=== PATIENT | male | born 1970 | race Hispanic/Latino ===

== ENCOUNTER 2017-07-02 04:38 | Emergency (ER) | payer BC ==
[2017-07-02 05:03] LABS: BASOPHILS % (AUTO) 0.4 % (0.0-5.0); EOSINOPHILS % (AUTO) 0.3 % (0.0-8.0); HEMATOCRIT 49.5 % (42-54); LYMPHOCYTES % (AUTO) 15.5 % (21.0-51.0); MEAN CORPUSCULAR HEMOGLOBIN 30.8 pg (27.0-33.0); MEAN CORPUSCULAR HGB CONC 33.9 g/dL (32.0-36.0); MEAN CORPUSCULAR VOLUME 90.7 fL (79-99); MONOCYTES % (AUTO) 3.3 % (3.0-13.0); NEUTROPHILS % (AUTO) 80.5 % (40.0-77.0); PLATELET COUNT (AUTO) 213 K/uL (130-400); RED BLOOD CELL COUNT(AUTO) 5.46 MIL/uL (4.50-6.20); RED CELL DISTRIBUTION WIDTH 12.9 % (11.0-15.5); WHITE BLOOD COUNT (AUTO) 12.1 K/uL (4.8-10.8)
[2017-07-02] MEDS ORDERED: SODIUM CHLORIDE 0.9% 1000ML 1,000 ML IV ONE (05:13)
[2017-07-02] MEDS ORDERED: KETOROLAC TROMETHAMINE 30MG/ML ONE (05:13)
[2017-07-02] MEDS ORDERED: DICYCLOMINE HCL 20 MG TAB ONE (05:13)
[2017-07-02] MEDS ORDERED: ONDANSETRON HCL 4 MG/2 ML VIAL ONE (05:13)
[2017-07-02 05:21] LABS: CREATININE 1.2 mg/dL (0.5-1.5); POTASSIUM 4.5 mmol/L (3.5-5.1)
[2017-07-02 05:25] LABS: ALBUMIN 4.2 g/dL (3.5-5.0); TOTAL PROTEIN, SERUM 8.2 g/dL (6.0-8.3)
[2017-07-02 05:31] LABS: APPEARANCE,URINE Clear (CLEAR); BILIRUBIN,URINE Negative (NEGATIVE); COLOR,URINE Yellow (YELLOW); GLUCOSE, URINE (UA) Negative (NEGATIVE); KETONES,URINE Negative (NEGATIVE); LEUKOCYTE ESTERASE ,URINE Negative (NEGATIVE); NITRATE,URINE Negative (NEGATIVE); OCCULT BLOOD,URINE Negative (NEGATIVE); PH,URINE 5.5 (5.0-8.0); PROTEIN,URINE Trace (NEGATIVE)
[2017-07-02 05:39] LABS: AMPHET/METH SCREEN,URINE NEGATIVE (NEGATIVE); BARBITURATE SCREEN, URINE NEGATIVE (NEGATIVE); BENZODIAZEPINES SCREEN,URINE NEGATIVE (NEGATIVE); CANNABINOID SCREEN,URINE NEGATIVE (NEGATIVE); COCAINE SCREEN,URINE NEGATIVE (NEGATIVE); OPIATE SCREEN,URINE NEGATIVE (NEGATIVE); PHENCYCLIDINE SCREEN,URINE NEGATIVE (NEGATIVE)
[2017-07-02] MEDS ORDERED: ACETAMINOPHEN-CODEINE 300/30MG TAB ONE (06:23)
== END 2017-07-02 06:43 | disposition home or self-care (01) ==
LOC: EDH 04:38
DX: K80.70 Calculus of gallbladder and bile duct without cholecystitis without obstruction (principal)
CPT/HCPCS: 36415; 76705; 80053; 80305; 81003; 82150; 83690; 85025; 96361; 96374; 96375; 99285; J1885; J2405; J7030

== ENCOUNTER 2017-08-20 06:36 | Observation (INO) | payer BC ==
[~2017-08-20] VITALS: Ht 167.6 cm; Wt 127.0 kg
[2017-08-20 07:02] LABS: BASOPHILS % (AUTO) 0.4 % (0.0-5.0); EOSINOPHILS % (AUTO) 1.7 % (0.0-8.0); MEAN CORPUSCULAR HEMOGLOBIN 31.4 pg (27.0-33.0); MEAN CORPUSCULAR HGB CONC 34.7 g/dL (32.0-36.0); MEAN CORPUSCULAR VOLUME 90.4 fL (79-99); MONOCYTES % (AUTO) 9.2 % (3.0-13.0); NEUTROPHILS % (AUTO) 52.7 % (40.0-77.0); NUCLEATED RED BLOOD CELLS 0.1 % (0.0-0.19); PLATELET COUNT (AUTO) 197 K/uL (130-400); RED BLOOD CELL COUNT(AUTO) 5.64 MIL/uL (4.50-6.20); RED CELL DISTRIBUTION WIDTH 12.9 % (11.0-15.5); WHITE BLOOD COUNT (AUTO) 9.2 K/uL (4.8-10.8)
[2017-08-20 07:10] LABS: CREATININE 1.1 mg/dL (0.5-1.5); POTASSIUM 5.2 mmol/L (3.5-5.1)
[2017-08-20] MEDS ORDERED: SODIUM CHLORIDE 0.9% 1000ML 1,000 ML IV ONE ×2 (07:11→10:43)
[2017-08-20] MEDS ORDERED: ONDANSETRON HCL 4 MG/2 ML VIAL ONE (07:11)
[2017-08-20 07:14] LABS: ALBUMIN 3.9 g/dL (3.5-5.0); BILIRUBIN,DIRECT 0.1 mg/dL (0.0-0.3)
[2017-08-20] MEDS ORDERED: MORPHINE SULFATE 4 MG/1ML SYG ONE (07:33)
[2017-08-20 07:56] LABS: BILIRUBIN,TOTAL 0.9 mg/dL (0.2-1.0); TOTAL PROTEIN, SERUM 7.8 g/dL (6.0-8.3)
[2017-08-20 08:18] LABS: APPEARANCE,URINE Clear (CLEAR); BILIRUBIN,URINE Negative (NEGATIVE); COLOR,URINE Yellow (YELLOW); GLUCOSE, URINE (UA) Negative (NEGATIVE); KETONES,URINE Negative (NEGATIVE); LEUKOCYTE ESTERASE ,URINE Negative (NEGATIVE); NITRATE,URINE Negative (NEGATIVE); OCCULT BLOOD,URINE Negative (NEGATIVE); PH,URINE 7.5 (5.0-8.0); PROTEIN,URINE Negative (NEGATIVE)
[2017-08-20 08:26] LABS: AMPHET/METH SCREEN,URINE NEGATIVE (NEGATIVE); BARBITURATE SCREEN, URINE NEGATIVE (NEGATIVE); BENZODIAZEPINES SCREEN,URINE NEGATIVE (NEGATIVE); CANNABINOID SCREEN,URINE NEGATIVE (NEGATIVE); COCAINE SCREEN,URINE NEGATIVE (NEGATIVE); OPIATE SCREEN,URINE POSITIVE (NEGATIVE); PHENCYCLIDINE SCREEN,URINE NEGATIVE (NEGATIVE)
[2017-08-20] MEDS: SODIUM CHLORIDE 0.9% 1000ML 1,000 ML IV SCH ×2 (09:52→19:52)
[2017-08-20] MEDS ORDERED: ONDANSETRON HCL 4 MG/2 ML VIAL IV PRN (10:00)
[2017-08-20] MEDS ORDERED: GUAIFENESIN-DM 200/20 MG 10 ML PO PRN (10:00)
[2017-08-20] MEDS ORDERED: MEPERIDINE-PF 25 MG/ML SYG IV PRN (10:00)
[2017-08-20] MEDS ORDERED: ACETAMINOPHEN 325 MG TAB PO PRN ×2 (10:00)
[2017-08-20] MEDS ORDERED: MAG HYDROX/AL HYDROX/SIMETH ES 30 ML SUSP UDCUP PO PRN (10:00)
[2017-08-20] MEDS ORDERED: PROMETHAZINE HCL 25 MG/ML 1ML AMPULE IM ONE (10:00)
[2017-08-20 10:13] LABS: HEMOGLOBIN A1C 5.6 % (4.0-6.0)
[2017-08-20] MEDS ORDERED: MEROPENEM 1 GM VIAL ONE (12:21)
[2017-08-20 12:52] VITALS: BP 119/64
[2017-08-20] MEDS ORDERED: ZOSYN 3.375GM+NS 50ML 50 ML IV SCH (13:00)
[2017-08-20] MEDS ORDERED: TYL3 PO (13:01)
[2017-08-20] MEDS ORDERED: DICY20TA11 PO (13:01)
[2017-08-20] MEDS: MEROPENEM 1 GM VIAL IVP SCH ×2 (14:08→21:33)
[2017-08-20 16:00] VITALS: BP 118/72
[2017-08-20 20:00] VITALS: BP 107/72
[2017-08-20] MEDS: FAMOTIDINE/PF 20 MG/2 ML VIAL IV SCH (21:33)
[2017-08-21] VITALS (23 sets, daily range): BP systolic 104–139; BP diastolic 60–89
[2017-08-21] MEDS: SODIUM CHLORIDE 0.9% 1000ML 1,000 ML IV SCH ×5 (00:35→21:55)
[2017-08-21] MEDS: MEROPENEM 1 GM VIAL IVP SCH (04:23)
[2017-08-21] MEDS: FLU VACC QS2017-18 36MOS UP/PF 60 MCG/0.5 ML ML IM SCH ×2 (04:24→21:50)
[2017-08-21 06:12] LABS: ALBUMIN 3.3 g/dL (3.5-5.0); BILIRUBIN,TOTAL 1.2 mg/dL (0.2-1.0); CREATININE 1.2 mg/dL (0.5-1.5); POTASSIUM 4.3 mmol/L (3.5-5.1); TOTAL PROTEIN, SERUM 6.4 g/dL (6.0-8.3)
[2017-08-21] MEDS: FAMOTIDINE/PF 20 MG/2 ML VIAL IV SCH ×3 (08:46→21:55)
[2017-08-21] MEDS ORDERED: LACTATED RINGERS 1000ML 1,000 ML IV ONE (10:55)
[2017-08-21] MEDS ORDERED: GLYCOPYRROLATE 0.2 MG/ML 5 ML VIAL ONE (11:20)
[2017-08-21] MEDS ORDERED: ONDANSETRON HCL 4 MG/2 ML VIAL ONE (11:20)
[2017-08-21] MEDS ORDERED: LIDOCAINE PF 2% 5ML ABBOJECT ONE (11:20)
[2017-08-21] MEDS ORDERED: NEOSTIGMINE 5MG/5ML SYR IV ONE (11:20)
[2017-08-21] MEDS ORDERED: SUCCINYLCHOLINE 200MG/10ML SYR ONE ×2 (11:20→11:24)
[2017-08-21] MEDS ORDERED: MIDAZOLAM HCL 1 MG/ML 2ML VIAL ONE (11:21)
[2017-08-21] MEDS ORDERED: FENTANYL CITRATE PF 50 MCG/1 ML 5ML AMP IV ONE ×2 (11:21→12:11)
[2017-08-21] MEDS ORDERED: PROPOFOL 10 MG/ML 20ML VIAL IV ONE ×2 (11:21→12:07)
[2017-08-21] MEDS ORDERED: HEPARIN SODIUM 1000UNIT/ML 10ML VIAL ONE (11:28)
[2017-08-21] MEDS ORDERED: KETOROLAC TROMETHAMINE 30MG/ML ONE ×2 (11:52→14:46)
[2017-08-21] MEDS ORDERED: ACETAMINOPHEN-CODEINE 300/30MG TAB PO PRN (13:00)
[2017-08-21] MEDS: ACETAMINOPHEN-CODEINE 300/30MG TAB PO PRN ×2 (14:39→21:55)
[2017-08-21] MEDS: MEPERIDINE HCL/PF 25 MG/0.5 ML AMPUL IV PRN (15:29)
[2017-08-22 00:47] VITALS: BP 136/83
[2017-08-22 04:16] VITALS: BP 118/65
[2017-08-22] MEDS: MEPERIDINE HCL/PF 25 MG/0.5 ML AMPUL IV PRN (04:52)
[2017-08-22 07:55] VITALS: BP 100/54
[2017-08-22] MEDS: SODIUM CHLORIDE 0.9% 1000ML 1,000 ML IV SCH ×2 (08:48→11:52)
[2017-08-22] MEDS: ACETAMINOPHEN-CODEINE 300/30MG TAB PO PRN ×2 (08:52→14:20)
[2017-08-22 12:01] VITALS: BP 128/73
== END 2017-08-22 17:02 | disposition home or self-care (01) ==
LOC: EDH 06:36 → EDHIP 09:52 → 4BH 11:31
PROVIDERS: ADMIT Family Medicine; ATTEND Family Medicine
DX: K80.10 Calculus of gallbladder with chronic cholecystitis without obstruction (principal); K76.0 Fatty (change of) liver, not elsewhere classified; E66.01 Morbid (severe) obesity due to excess calories; Z23 Encounter for immunization
CPT/HCPCS: 36415 ×2; 47562; 76705; 78227; 80048; 80053; 80076; 80305; 81003; 82550; 83036; 83690; 85025; 88304; 96374; 96375 ×2; 96376 ×3; 99285; A4218 ×4; A4450; A4510; A4649; A9537; C1769 ×4; G0008; G0378 ×55; J0330 ×2; J1644; J1885 ×2; J2001; J2175 ×2; J2185 ×4; J2250; J2270; J2405 ×3; J2550; J2704 ×2; J2710; J3010 ×2; J3490 ×5; J7030 ×5; J7120; Q2038

== ENCOUNTER → 2019-07-22 | Outpatient (CLI) | payer BC ==
[~2019-07-22] MED LIST: DICY20TA11 PO; TYL3 PO
== END | disposition home or self-care (01) ==
LOC: OIH 09:35
PROVIDERS: ATTEND Internal Medicine
DX: R06.00 Dyspnea, unspecified (principal)
CPT/HCPCS: 71046

== ENCOUNTER 2022-06-05 20:07 | Emergency (ER) | payer BC, MEDICAID ==
[~2022-06-05] VITALS: Ht 167.6 cm; Wt 141.5 kg
[~2022-06-05 20:07] MED LIST changes: -DICY20TA11 PO; +DICY20TA3 PO
[2022-06-05 20:54] VITALS: BP 158/85
[2022-06-05 20:55] LABS: BASOPHILS % (AUTO) 0.4 % (0.0-5.0); EOSINOPHILS % (AUTO) 3.3 % (0.0-8.0); LYMPHOCYTES % (AUTO) 33.3 % (21.0-51.0); MEAN CORPUSCULAR HEMOGLOBIN 31.2 pg (27.0-33.0); MEAN CORPUSCULAR HGB CONC 33.9 g/dL (32.0-36.0); MEAN CORPUSCULAR VOLUME 92.2 fL (79-99); MONOCYTES % (AUTO) 9.2 % (3.0-13.0); NEUTROPHILS % (AUTO) 53.6 % (40.0-77.0); PLATELET COUNT (AUTO) 178 K/uL (130-400); RED BLOOD CELL COUNT(AUTO) 4.77 MIL/uL (4.50-6.20); RED CELL DISTRIBUTION WIDTH 12.2 % (11.0-15.5); WHITE BLOOD COUNT (AUTO) 8.5 K/uL (4.8-10.8)
[2022-06-05 21:05] LABS: CREATININE 1.2 mg/dL (0.5-1.5); POTASSIUM 3.5 mmol/L (3.5-5.1)
[2022-06-05 21:15] LABS: ALBUMIN 3.5 g/dL (3.5-5.0)
== END 2022-06-05 21:51 | disposition home or self-care (01) ==
LOC: EDH 20:07
DX: I10 Essential (primary) hypertension (principal); Z90.49 Acquired absence of other specified parts of digestive tract
CPT/HCPCS: 36415; 71045; 80053; 84484; 85025; 93005

== ENCOUNTER → 2022-10-23 | Outpatient (CLI) | payer BC, MEDICAID | END | disposition home or self-care (01) | LOC: RAH 13:27 | PROVIDERS: ATTEND Internal Medicine | DX: N43.3 Hydrocele, unspecified (principal); N50.819 Testicular pain, unspecified | CPT/HCPCS: 76870 ==

== ENCOUNTER 2023-01-15 15:11 | Observation (INO) | payer BC, MEDICAID ==
[~2023-01-15] VITALS: Ht 167.6 cm; Wt 138.8 kg
[2023-01-15 17:05] LABS: HEMATOCRIT 48.3 % (42-54); MEAN CORPUSCULAR HEMOGLOBIN 31.7 pg (27.0-33.0); MEAN CORPUSCULAR VOLUME 93.2 fL (79-99); RED BLOOD CELL COUNT(AUTO) 5.18 MIL/uL (4.50-6.20); RED CELL DISTRIBUTION WIDTH 12.2 % (11.0-15.5); WHITE BLOOD COUNT (AUTO) 8.6 K/uL (4.8-10.8)
[2023-01-15 17:53] LABS: ALANINE AMINOTRANSFERASE 67 U/L (12-78); ALBUMIN 3.7 g/dL (3.5-5.0); ASPARTATE AMINOTRANSFERASE 28 U/L (10-37); CARBON DIOXIDE 33 mmol/L (21-32); CHLORIDE 105 mmol/L (101-111); CREATINE KINASE, TOTAL 164 U/L (21-232); CREATININE 0.9 mg/dL (0.5-1.5); GLOMERULAR FILTR. RATE CALC 104 mL/min (>90); GLUCOSE,RANDOM 95 mg/dL (70-105); MYOGLOBIN 59 ng/mL (10-92); POTASSIUM 4.1 mmol/L (3.5-5.1); SODIUM SERUM 143 mmol/L (136-145); THYROID STIMULATING HORMONE 1.72 uIU/mL (0.36-3.74); TOTAL PROTEIN, SERUM 7.3 g/dL (6.0-8.3); UREA NITROGEN, BLOOD 11 mg/dL (7-18)
[2023-01-15 18:05] LABS: CRP QUANTITATIVE < 2.00 mg/L (0.00-9.0)
[2023-01-15] MEDS ORDERED: ACETAMINOPHEN 325 MG TAB PO PRN (23:30)
[2023-01-15] MEDS ORDERED: HYDROMORPHONE 0.5 MG SYG (0.5MG/0.5ML) IVP PRN (23:30)
[2023-01-15] MEDS ORDERED: ONDANSETRON 4MG INJ IVP PRN (23:30)
[2023-01-15] MEDS: 1/2 NS 1000ML 1,000 ML IV SCH (23:31)
[2023-01-16] VITALS (8 sets, daily range): BP systolic 134–160; BP diastolic 71–91; PULSE 52–67; RESP 18–24; O2SAT 97–98
[2023-01-16] MEDS ORDERED: DICY20TA3 PO (01:20)
[2023-01-16] MEDS ORDERED: SILD100T PO (01:20)
[2023-01-16] MEDS ORDERED: MOBIC PO (01:20)
[2023-01-16] MEDS ORDERED: LISI10TA24 PO (01:20)
[2023-01-16] MEDS ORDERED: TEST200V21 IM (01:20)
[2023-01-16] MEDS ORDERED: DICL75TA5 PO (01:20)
[2023-01-16 05:18] LABS: HEMATOCRIT 46.1 % (42-54); MEAN CORPUSCULAR HGB CONC 33.8 g/dL (32.0-36.0); MEAN CORPUSCULAR VOLUME 91.7 fL (79-99); RED BLOOD CELL COUNT(AUTO) 5.03 MIL/uL (4.50-6.20); RED CELL DISTRIBUTION WIDTH 12.3 % (11.0-15.5)
[2023-01-16 05:38] LABS: CREATININE 0.9 mg/dL (0.5-1.5); POTASSIUM 3.5 mmol/L (3.5-5.1)
[2023-01-16] MEDS ORDERED: POTASSIUM CHLORIDE 10% ELIXIR 20 MEQ/15 ML UDCUP PO PRN (07:00)
[2023-01-16 07:03] LABS: APPEARANCE,URINE CLEAR (CLEAR); BILIRUBIN,URINE NEGATIVE (NEGATIVE); COLOR,URINE LIGHT-YELLOW (YELLOW); GLUCOSE, URINE (UA) NEGATIVE (NEGATIVE); KETONES,URINE NEGATIVE (NEGATIVE); LEUKOCYTE ESTERASE ,URINE NEGATIVE Leu/uL (NEGATIVE); NITRATE,URINE NEGATIVE (NEGATIVE); OCCULT BLOOD,URINE NEGATIVE (NEGATIVE); PH,URINE 6.5 (5.0-8.0); PROTEIN,URINE NEGATIVE (NEGATIVE); UROBILINOGEN,URINE 0.2 mg/dL (0.2-1.0)
[2023-01-16] MEDS ORDERED: LORAZEPAM 2 MG/ML 1 ML VIAL IM ONE (09:00)
[2023-01-16] MEDS: LISINOPRIL 10 MG TABLET PO SCH ×2 (09:03→20:26)
[2023-01-16] MEDS: 1/2 NS 1000ML 1,000 ML IV SCH ×2 (09:05→19:30)
[2023-01-16] MEDS: KCL 20 MEQ ERTAB PO PRN ×2 (20:52→22:39)
[2023-01-17] VITALS: BP 116/65; PULSE 61; RESP 24
[2023-01-17 04:00] VITALS: BP 103/55; PULSE 59; RESP 24
[2023-01-17] MEDS: 1/2 NS 1000ML 1,000 ML IV SCH ×2 (04:14→14:35)
[2023-01-17 05:17] LABS: BASOPHILS % (AUTO) 0.3 % (0.0-5.0); EOSINOPHILS % (AUTO) 2.5 % (0.0-8.0); HEMATOCRIT 47.9 % (42-54); LYMPHOCYTES % (AUTO) 28.6 % (21.0-51.0); MEAN CORPUSCULAR HEMOGLOBIN 31.1 pg (27.0-33.0); MEAN CORPUSCULAR HGB CONC 33.2 g/dL (32.0-36.0); MEAN CORPUSCULAR VOLUME 93.7 fL (79-99); MONOCYTES % (AUTO) 10.2 % (3.0-13.0); NEUTROPHILS % (AUTO) 58.2 % (40.0-77.0); PLATELET COUNT (AUTO) 182 K/uL (130-400); RED BLOOD CELL COUNT(AUTO) 5.11 MIL/uL (4.50-6.20); RED CELL DISTRIBUTION WIDTH 12.3 % (11.0-15.5); WHITE BLOOD COUNT (AUTO) 8.9 K/uL (4.8-10.8)
[2023-01-17 05:51] LABS: CREATININE 1.3 mg/dL (0.5-1.5); POTASSIUM 4.7 mmol/L (3.5-5.1)
[2023-01-17] MEDS ORDERED: LORAZEPAM 2 MG/ML 1 ML VIAL IVP ONE ×2 (06:30→11:00)
[2023-01-17 08:00] VITALS: BP 104/69; PULSE 52; RESP 18; O2SAT 96
[2023-01-17] MEDS: LISINOPRIL 10 MG TABLET PO SCH (09:58)
[2023-01-17] MEDS ORDERED: GADOTERATE MEGLUMINE 10 MMOL/20 ML VIAL IV ONE (10:48)
[2023-01-17 16:00] VITALS: BP 157/86; PULSE 73; RESP 18
== END 2023-01-17 16:39 | disposition home or self-care (01) ==
LOC: EDH 15:11 → DIRECT 16:41 → 3CH 01-16 01:30
PROVIDERS: ADMIT Internal Medicine; ATTEND Internal Medicine
DX: M99.05 Segmental and somatic dysfunction of pelvic region (principal); M54.50 Low back pain, unspecified; F41.9 Anxiety disorder, unspecified; I10 Essential (primary) hypertension; Z79.899 Other long term (current) drug therapy
CPT/HCPCS: 96361 ×2; 99285; 84443; 82550; 83874; 84484; 80053; 85027 ×2; 85651 ×2; 83605 ×2; 84154; 84153; 86140; 86431; 36415 ×3; 71045; 72131; 74176; 93005; 96372; 80048 ×2; 87077; 87088; 87186; 81003; 72148; 97161; 97116; 96374; 85025; 72197; G0378 ×48; J2060 ×2; G8980; G8983; A9575

== ENCOUNTER 2024-04-24 09:59 | Emergency (ER) | payer BC ==
[~2024-04-24] VITALS: Ht 167.6 cm; Wt 124.7 kg
[~2024-04-24 09:59] MED LIST changes: +DICL75TA5 PO; +LISI10TA24 PO; +MOBIC PO; +SILD100T PO; +TEST200V21 IM; -TYL3 PO
[2024-04-24 10:37] LABS: BASOPHILS # (AUTO) 0.03 K/uL (0.00-0.20); BASOPHILS % (AUTO) 0.3 % (0.0-5.0); EOSINOPHILS # (AUTO) 0.26 K/uL (0.00-0.70); EOSINOPHILS % (AUTO) 2.9 % (0.0-8.0); HEMATOCRIT 45.4 % (42-54); IMMATURE GRANULOCYTE ABSOLUTE 0.03 K/uL (0-1); LYMPHOCYTES # (AUTO) 2.9 K/uL (1.0-4.8); LYMPHOCYTES % (AUTO) 32.8 % (21.0-51.0); MEAN CORPUSCULAR HEMOGLOBIN 31.7 pg (27.0-33.0); MEAN CORPUSCULAR HGB CONC 34.6 g/dL (32.0-36.0); MEAN CORPUSCULAR VOLUME 91.7 fL (79-99); MONOCYTES # (AUTO) 0.7 K/uL (0.1-1.0); MONOCYTES % (AUTO) 7.9 % (3.0-13.0); NEUTROPHILS # (AUTO) 4.9 K/uL (1.8-7.7); NEUTROPHILS % (AUTO) 55.8 % (40.0-77.0); PLATELET COUNT (AUTO) 187 K/uL (130-400); RED BLOOD CELL COUNT(AUTO) 4.95 MIL/uL (4.50-6.20); RED CELL DISTRIBUTION WIDTH 12.3 % (11.0-15.5); WHITE BLOOD COUNT (AUTO) 8.8 K/uL (4.8-10.8)
[2024-04-24 10:46] LABS: CREATININE 1.1 mg/dL (0.5-1.3); POTASSIUM 3.4 mmol/L (3.5-5.1)
[2024-04-24 10:53] LABS: ALBUMIN 3.7 g/dL (3.5-5.0); BILIRUBIN,TOTAL 1.3 mg/dL (0.2-1.0); TOTAL PROTEIN, SERUM 6.9 g/dL (6.0-8.3)
[2024-04-24 12:06] LABS: APPEARANCE,URINE CLEAR (CLEAR); BILIRUBIN,URINE NEGATIVE (NEGATIVE); COLOR,URINE LIGHT-YELLOW (YELLOW); GLUCOSE, URINE (UA) NEGATIVE (NEGATIVE); KETONES,URINE NEGATIVE (NEGATIVE); LEUKOCYTE ESTERASE ,URINE NEGATIVE Leu/uL (NEGATIVE); NITRATE,URINE NEGATIVE (NEGATIVE); OCCULT BLOOD,URINE NEGATIVE (NEGATIVE); PROTEIN,URINE NEGATIVE (NEGATIVE); UROBILINOGEN,URINE 0.2 mg/dL (0.2-1.0)
[2024-04-24 12:21] LABS: ADD UA MICROSCOPIC NO
[2024-04-24] MEDS ORDERED: FAMO-136 PO (13:12)
[2024-04-24 14:01] VITALS: BP 133/71; PULSE 71; RESP 18; TEMP 98.4; O2SAT 98
== END 2024-04-24 14:11 | disposition home or self-care (01) ==
LOC: EDH 09:59
DX: K29.70 Gastritis, unspecified, without bleeding (principal); E66.01 Morbid (severe) obesity due to excess calories; I10 Essential (primary) hypertension; Z79.899 Other long term (current) drug therapy; Z90.49 Acquired absence of other specified parts of digestive tract
CPT/HCPCS: 36415; 80053; 81003; 83690; 84484; 85025; 93005

== ENCOUNTER → 2025-06-04 | Outpatient (CLI) | payer BC ==
--- NOTE | 2025-06-06 00:51 | HMCIMG ---
EXAM: CR KNEE WEIGHT-BEARING BILATERAL, 2 VIEWS CLINICAL HISTORY: Internal knee derangement, lateral meniscus tear, knee pain. COMPARISON: None provided TECHNIQUE: Two x-ray views of both knees was performed. FINDINGS: Bones: No fracture or subluxation. Mild subchondral sclerosis of medial tibial condyle is appreciated. Small enthesophyte at tibial tuberosity. Note is made of fabella. Joints: Preservation of the joint space. Articular surfaces demonstrate mild subchondral sclerosis of the medial tibial condyle. Soft tissues: Specks of soft tissue calcification at the site of fibular collateral ligament. IMPRESSION: 1. Mild medial compartment osteoarthritis 2. Small enthesophyte at the tibial tuberosity, with fabella and specks of calcification at the fibular collateral ligament region noted as incidental findings. /[place]
== END | disposition home or self-care (01) ==
LOC: RAH 09:27
PROVIDERS: ATTEND Internal Medicine
DX: S83.241A Other tear of medial meniscus, current injury, right knee, initial encounter (principal); S83.281A Other tear of lateral meniscus, current injury, right knee, initial encounter; S83.282A Other tear of lateral meniscus, current injury, left knee, initial encounter; M17.0 Bilateral primary osteoarthritis of knee; M23.90 Unspecified internal derangement of unspecified knee; M76.892 Other specified enthesopathies of left lower limb, excluding foot; M76.891 Other specified enthesopathies of right lower limb, excluding foot; M25.862 Other specified joint disorders, left knee; M25.861 Other specified joint disorders, right knee; M25.561 Pain in right knee; X58.XXXA Exposure to other specified factors, initial encounter; Y93.89 Activity, other specified; Y92.89 Other specified places as the place of occurrence of the external cause; Y99.8 Other external cause status
CPT/HCPCS: 73560